=== PATIENT | female | born 1995 | race Caucasian/White ===

== ENCOUNTER 2018-03-14 20:28 | Emergency (ER) | payer OTHER ==
[2018-03-14 20:42] VITALS: BP 128/65
--- NOTE | 2018-03-14 20:59 | UC ---
UC General HPI - HPI Summary HPI Summary: SATURDAY, PT NOTED A BRUISE WITH SWELLING TO THE BACK OF HER R HAND. SHE CAN'T RECALL ANY INJURY. NOW, SHE NOTES SOME PAINS TO THE BACK OF HER WRIST. THE PAIN RADIATES FROM THE BACK OF HAND INTO FOREARM. ADMITS TO REPETITION AT WORK. NO ISSUES WITH EXCESSIVE BRUISING OR BLEEDING. - History of Current Complaint Chief Complaint: UCTrauma Stated Complaint: RIGHT HAND/WRIST PAIN Time Seen by Provider: 03/14/18 20:52 Hx Obtained From: Patient Hx Last Menstrual Period: - no menses and has nexplanon Pain Intensity: 8 Aggravating: MOVEMENT Associated Signs & Symptoms: Negative: Fever - Allergy/Home Medications Allergies/Adverse Reactions: Allergies Allergy/AdvReac Type Severity Reaction Status Date / Time No Known Allergies Allergy Verified 03/14/18 20:42 PMH/Surg Hx/FS Hx/Imm Hx Neurological History: Migraine Psychological History: Depression - Surgical History Surgical History: None - Family History Known Family History: Positive: Other - ASTHMA, DEPRESSION - Social History Occupation: Employed Full-time Lives: With Family Alcohol Use: None Substance Use Type: None Smoking Status (MU): Never Smoked Tobacco - Immunization History Vaccination Up to Date: Yes Review of Systems Constitutional: Negative Skin: Bruising - R HAND Eyes: Negative ENT: Negative Respiratory: Negative Cardiovascular: Negative Gastrointestinal: Negative Genitourinary: Negative Motor: Negative Neurovascular: Negative Musculoskeletal: Negative Neurological: Negative Psychological: Negative Is Patient Immunocompromised?: No All Other Systems Reviewed And Are Negative: Yes Physical Exam Triage Information Reviewed: Yes Appearance: Well-Appearing Vital Signs: Initial Vital Signs Temp 97.8 F 03/14/18 20:38 Pulse 69 03/14/18 20:38 Resp 16 03/14/18 20:38 BP 128/65 03/14/18 20:38 Pulse Ox 100 03/14/18 20:38 Eyes: Positive: Conjunctiva Clear ENT: Positive: Normal ENT inspection Neck: Positive: Supple, Nontender, No Lymphadenopathy Respiratory: Positive: Lungs clear, Normal breath sounds Cardiovascular: Positive: RRR, No Murmur Abdomen Description: Positive: Nontender, No Organomegaly, Soft Bowel Sounds: Positive: Present Musculoskeletal: Positive: Other: - RUE: HAM BRUISE BACK OF R HAND BASE OF THUMB AREA REST OF HAND WITH NO DEFORMITY, SWELLING OR DISCOLORATION. NO BONY TENDERNESS. HAND HAS FULL S/V/M FUNCTION. PAIN OVER DORSAL WRIST WITH FLEXION AND EXTENSION. CARPALS ARE NON TENDER. Neurological: Positive: Alert Psychological: Positive: Age Appropriate Behavior Skin Exam: Normal Course/Dx - Course Course Of Treatment: NO CONCERN FOR FX, INFECTION OR BLEEDING DISORDER. - Differential Dx - Multi-Symptom Provider Diagnoses: CONTUSION R HAND. TENDINITIS R WRIST Discharge - Sign-Out/Discharge Documenting (check all that apply): Patient Departure All imaging exams completed and their final reports reviewed: No Studies - Discharge Plan Condition: Stable Disposition: HOME Patient Education Materials: Contusion in Adults (ED), Tendinitis (ED) Referrals: ROBIN Whitt [Medical Doctor] - 7 Days - Billing Disposition and Condition Condition: STABLE Disposition: Home
== END 2018-03-14 21:22 | disposition home or self-care (01) ==
LOC: UCCORT 20:28
DX: S60.221A Contusion of right hand, initial encounter (principal); M77.9 Enthesopathy, unspecified; X58.XXXA Exposure to other specified factors, initial encounter; Y92.9 Unspecified place or not applicable
CPT/HCPCS: 99212; G0463